=== PATIENT | female | born 1980 | race Caucasian/White ===

== ENCOUNTER 2020-12-02 10:49 | Emergency (ER) | payer OTHER ==
[~2020-12-02] VITALS: Ht 172.7 cm; Wt 97.5 kg
[2020-12-02 11:02] VITALS: Ht 172.7 cm; Wt 97.5 kg
[2020-12-02 12:49] LABS: BASOPHIL % 0.8 % (0.2-1.3); PLATELET COUNT 293 x10^3mcL (179-408); RED CELL DISTRIBUTION WIDTH 13.4 % (12.3-17.7)
[2020-12-02 13:17] LABS: CALCIUM 8.9 mg/dL (8.5-10.1); CHLORIDE SERUM 103 mmol/L (98-107); CREATININE SERUM 0.8 mg/dL (0.6-1.0); GFR1 > 60 mL/min; GLUCOSE SERUM 88 mg/dL (74-106); POTASSIUM SERUM 4.1 mmol/L (3.5-5.1); SODIUM SERUM 141 mmol/L (136-145)
[2020-12-02 13:22] LABS: ALBUMIN 3.7 g/dL (3.4-5.0); ALKALINE PHOSPHATASE 52 U/L (46-116); ALT/SGPT 68 U/L (14-59); AST/SGOT 45 U/L (15-37); BILIRUBIN TOTAL 0.5 mg/dL (0.20-1.00); TOTAL PROTEIN, SERUM 7.1 g/dL (6.4-8.2)
[2020-12-02 13:40] VITALS: BP 165/87
== END 2020-12-02 13:40 | disposition home or self-care (01) ==
LOC: ED 10:49
PROVIDERS: Student in an Organized Health Care Education/Training Program
DX: M79.621 Pain in right upper arm (principal)
CPT/HCPCS: J1885